=== PATIENT | female | born 1970 | race Asian ===

== ENCOUNTER 2022-04-20 23:20 | Inpatient (IN) ==
[2022-04-20] MEDS ORDERED: NS 0.9% 1000 ml BAG 1,000 ML IV ONE (23:38)
[2022-04-20] MEDS ORDERED: Ondansetron 4 mg VIAL 2 MG/ML 2 ml VIAL IV ONE ×2 (23:38→23:56)
[2022-04-21 00:07] LABS: ABS Basophils 0.1 10^3/ul (0-0.2); ABS Lymphocytes 0.9 10^3/ul (1.0-4.8); ABS Monocytes 0.4 10^3/ul (0-0.8); ABS Neutrophils 13.5 10^3/ul (1.5-7.7); Eosinophil % 0.1 %; Hematocrit 47 % (35-47); Hemoglobin 15.7 g/dL (12.0-16.0); Lymphocyte % 5.8 %; Mean Corpuscular HGB Conc 33 g/dL (31-36); Mean Corpuscular Hemoglobin 31 pg (27-31); Mean Corpuscular Volume 92 fL (80-97); Mean Platelet Volume 7.9 fL (7.4-10.4); Nucleated Red Blood Cells % 0.1; Platelet Count 383 10^3/uL (150-450); Red Blood Count 5.14 10^6 /uL (3.70-4.87); Red Cell Distribution Width 13 % (10-15); White Blood Count 14.9 10^3/uL (3.5-10.8)
[2022-04-21 00:40] LABS: ALT 19 U/L (7-52); Albumin 4.4 g/dL (3.2-5.2); Albumin/Globulin Ratio 1.5 (1-3); Alkaline Phosphatase 67 U/L (35-149); Blood Urea Nitrogen 18 mg/dL (6-24); CO2 Carbon Dioxide 21 mmol/L (22-32); Calcium 9.9 mg/dL (8.6-10.3); Chloride 103 mmol/L (101-111); Glucose 162 mg/dL (70-100); Lipase 12 U/L (11.0-82.0); Sodium 137 mmol/L (135-145); Total Protein 7.4 g/dL (6.4-8.9); eGFR CKD-EPI 95.4 (>60)
[2022-04-21 00:46] LABS: HCG Pregnancy 1.06 mIU/mL
[2022-04-21 00:53] LABS: Anion Gap 13 mmol/L (2-11)
[2022-04-21] MEDS ORDERED: ceFOXitin 1 GM in NS 0.9% 50 ML 50 ML IVPB ONE (03:07)
[2022-04-21] MEDS ORDERED: NS 0.9% 1000 ml BAG 1,000 ML IV ONE ×2 (03:08→04:33)
[2022-04-21] MEDS ORDERED: Ondansetron 4 mg VIAL 2 MG/ML 2 ml VIAL IV ONE (03:13)
[2022-04-21 04:26] LABS: Potassium Redraw 4.3 mmol/L (3.5-5.0)
[2022-04-21 05:26] LABS: Blood Urea Nitrogen 16 mg/dL (6-24); CO2 Carbon Dioxide 23 mmol/L (22-32); Calcium 7.8 mg/dL (8.6-10.3); Chloride 110 mmol/L (101-111); Glucose 102 mg/dL (70-100); Sodium 141 mmol/L (135-145)
[2022-04-21 05:30] LABS: Anion Gap 8 mmol/L (2-11)
[2022-04-21] MEDS ORDERED: HYDROmorphone 1 MG/1 ML SYRINGE IV SLOW PU PRN (06:09)
[2022-04-21 06:27] LABS: ABS Lymphocytes 0.8 10^3/ul (1.0-4.8); ABS Monocytes 0.3 10^3/ul (0-0.8); Eosinophil % 0.1 %; Hematocrit 39 % (35-47); Hemoglobin 13.2 g/dL (12.0-16.0); Lymphocyte % 5.7 %; Mean Corpuscular HGB Conc 34 g/dL (31-36); Mean Corpuscular Hemoglobin 31 pg (27-31); Mean Corpuscular Volume 93 fL (80-97); Mean Platelet Volume 7.6 fL (7.4-10.4); Platelet Count 320 10^3/uL (150-450); Red Blood Count 4.22 10^6 /uL (3.70-4.87); Red Cell Distribution Width 13 % (10-15); White Blood Count 13.1 10^3/uL (3.5-10.8)
[2022-04-21 06:49] LABS: Urine Appearance Turbid; Urine Bilirubin Negative (Negative); Urine Blood Negative (Negative); Urine Color Yellow; Urine Glucose Negative (Negative); Urine Ketones Trace (Negative); Urine Nitrite Negative (Negative); Urine Protein Negative (Negative); Urine Specific Gravity 1.018 (1.002-1.030); Urine Urobilinogen Negative (Negative)
[2022-04-21] MEDS ORDERED: Lactated Ringers 1000 ml BAG 1,000 ML IV SCH (07:00)
[2022-04-21] MEDS ORDERED: Acetaminophen IV 1 GM/100ML 100 ML IV ONE (16:43)
[2022-04-21] MEDS: Acetaminophen IV 1 GM/100ML 100 ML IV PRN (16:46)
[2022-04-22] MEDS: Acetaminophen IV 1 GM/100ML 100 ML IV PRN (04:02)
[2022-04-22 05:52] LABS: ABS Eosinophils 0.1 10^3/ul (0-0.6); ABS Lymphocytes 1.5 10^3/ul (1.0-4.8); ABS Monocytes 0.3 10^3/ul (0-0.8); ABS Neutrophils 4.9 10^3/ul (1.5-7.7); Eosinophil % 0.9 %; Hematocrit 36 % (35-47); Lymphocyte % 22.3 %; Mean Corpuscular HGB Conc 34 g/dL (31-36); Mean Corpuscular Hemoglobin 32 pg (27-31); Mean Corpuscular Volume 94 fL (80-97); Mean Platelet Volume 8.2 fL (7.4-10.4); Platelet Count 263 10^3/uL (150-450); Red Blood Count 3.81 10^6 /uL (3.70-4.87); Red Cell Distribution Width 13 % (10-15); White Blood Count 6.9 10^3/uL (3.5-10.8)
[2022-04-22] MEDS ORDERED: Lactated Ringers 1000 ml BAG 1,000 ML IV SCH (10:32)
[2022-04-23 15:36] VITALS: BP 142/84
== END 2022-04-23 17:50 | disposition home or self-care (01) | DRG 247 ==
LOC: ED 23:20 → EDHOLD 04-21 06:09 → SSU 04-21 15:30
PROVIDERS: ADMIT Surgery; ATTEND Surgery